=== PATIENT | female | born 1945 | race Caucasian/White ===

== ENCOUNTER 2017-03-19 11:56 | Emergency (ER) | payer OTHER ==
[2017-04-18] MEDS ORDERED: LISINOPRIL20 MG PO (09:32)
[2017-04-18] MEDS ORDERED: ZIAC 5-6.25 MG1 EACH PO (09:32)
[2017-04-18] MEDS ORDERED: TIROSINT100 MCG PO (09:33)
[2017-04-18] MEDS ORDERED: OLANZAPINE2.5 MG PO (09:33)
[2017-04-18] MEDS ORDERED: PANTOPRAZOLE SO40 MG PO (09:34)
[2017-04-18] MEDS ORDERED: WELLBUTRIN XL300 MG PO (09:34)
[2017-04-18] MEDS ORDERED: PERCOCET 7.5-31 EACH PO ×2 (09:35→13:29)
[2017-04-18] MEDS ORDERED: CLONAZEPAM0.5 MG PO (09:35)
== END 2017-03-19 15:20 | disposition home or self-care (01) ==
LOC: ER1 11:56
DX: S42.011A Anterior displaced fracture of sternal end of right clavicle, initial encounter for closed fracture (principal); I10 Essential (primary) hypertension; Z79.899 Other long term (current) drug therapy; W01.198A Fall on same level from slipping, tripping and stumbling with subsequent striking against other object, initial encounter
CPT/HCPCS: 73030; 73060; 99283

== ENCOUNTER → 2017-04-18 | Day surgery (SDC) | payer OTHER ==
[~2017-04-18] VITALS: Ht 162.6 cm; Wt 65.8 kg
[~2017-04-18] MED LIST: CLONAZEPAM0.5 MG PO; LISINOPRIL20 MG PO; OLANZAPINE2.5 MG PO; PANTOPRAZOLE SO40 MG PO; PERCOCET 7.5-31 EACH PO; TIROSINT100 MCG PO; WELLBUTRIN XL300 MG PO; ZIAC 5-6.25 MG1 EACH PO
[2017-04-18 09:07] LABS: HEMOGLOBIN 11.5 gm/dl (12.3-15.3); RED BLOOD COUNT 4.05 M/UL (4.00-5.10); WHITE BLOOD COUNT 4.9 K/UL (4.5-11.0)
[2017-04-18 09:20] LABS: BUN/CREATININE RATIO 23 (0-10)
== END | disposition home or self-care (01) ==
LOC: OR 08:33
PROVIDERS: Orthopaedic Surgery
PROC: 0PS904Z Reposition Right Clavicle with Internal Fixation Device, Open Approach (ICD-10-PCS; principal; 2017-04-18 11:30)
DX: S42.021A Displaced fracture of shaft of right clavicle, initial encounter for closed fracture (principal); S42.031A Displaced fracture of lateral end of right clavicle, initial encounter for closed fracture; I10 Essential (primary) hypertension; G89.29 Other chronic pain; M19.90 Unspecified osteoarthritis, unspecified site; M81.0 Age-related osteoporosis without current pathological fracture; Z83.3 Family history of diabetes mellitus; Z79.1 Long term (current) use of non-steroidal anti-inflammatories (NSAID); Z79.891 Long term (current) use of opiate analgesic; Z79.899 Other long term (current) drug therapy; X58.XXXA Exposure to other specified factors, initial encounter
CPT/HCPCS: 36415; 73000; 76000; 80048; 85025; C1713; J0690; J2250; J2795; J3010; J7120

== ENCOUNTER 2021-02-17 14:21 | Inpatient (IN) | payer OTHER ==
[~2021-02-17] VITALS: Ht 162.6 cm; Wt 53.5 kg
[~2021-02-17 14:21] MED LIST changes: -CLONAZEPAM0.5 MG PO
--- NOTE | 2021-02-17 17:05 | NUR ---
NOTIFIED DR GARCIA OF CONSULT FOR UNSTABLE L-2 FRACTURE
[2021-02-17 17:43] LABS: BUN/CREATININE RATIO 18 (0-10)
--- NOTE | 2021-02-17 18:10 | NUR ---
DR GARCIA HERE TO SEE PT, ORDERS REC'D
[2021-02-17 18:48] LABS: HEMOGLOBIN 12.9 gm/dl (12.3-15.3); RED BLOOD COUNT 4.54 M/UL (4.00-5.10); WHITE BLOOD COUNT 5.5 K/UL (4.5-11.0)
[2021-02-18 03:45] LABS: HEMOGLOBIN 11.7 gm/dl (12.3-15.3); RED BLOOD COUNT 4.15 M/UL (4.00-5.10); WHITE BLOOD COUNT 5.4 K/UL (4.5-11.0)
[2021-02-18 04:08] LABS: BUN/CREATININE RATIO 18 (0-10)
[2021-02-18] MEDS ORDERED: KLONOPIN0.5 MG PO (09:35)
[2021-02-18] MEDS ORDERED: TRAZODONE HCL100 MG PO (12:34)
[2021-02-18] MEDS ORDERED: DICLOFENAC SOD100 MG PO (12:36)
[2021-02-18] MEDS ORDERED: IBU800 MG PO (12:39)
[2021-02-18] MEDS ORDERED: VITAMIN D21250 MCG PO (12:40)
[2021-02-18] MEDS ORDERED: DONEPEZIL HCL10 MG PO (12:40)
[2021-02-18] MEDS ORDERED: MYRBETRIQ50 MG PO (12:40)
[2021-02-19 02:58] LABS: HEMOGLOBIN 12.5 gm/dl (12.3-15.3); RED BLOOD COUNT 4.44 M/UL (4.00-5.10); WHITE BLOOD COUNT 4.7 K/UL (4.5-11.0)
[2021-02-19 03:14] LABS: BUN/CREATININE RATIO 22 (0-10)
[2021-02-20 02:21] LABS: HEMOGLOBIN 13.2 gm/dl (12.3-15.3); RED BLOOD COUNT 4.57 M/UL (4.00-5.10)
[2021-02-20 02:30] LABS: WHITE BLOOD COUNT 12.1 K/UL (4.5-11.0)
[2021-02-20 03:06] LABS: BUN/CREATININE RATIO 16 (0-10)
--- NOTE | 2021-02-20 04:19 | NUR ---
2315 pt arrived to icu 2126, currently on . 2330 MD at bedside attempting to place [place], unsuccessful. 0000 MD placed R IJ triple lumen CVL, CXR ordered. 0030 and son at bedside. Family updated on poc and current vs and medications. Consult placed for Hospitalist. 0115 Orders received from [facility]: titrate fio2 down to 50%, rate 16 to maintain O2 sat > 92% and repeat blood gas in 2 hrs. DC levaquin and flagyl. Start Zosyn q6h and have pharmacy dose. 500ml NS bolus and continue NS @ 100ml/hr. Orders placed for labs and ekg. RT called and updated on changes, will repeat ABG at 3 am. 0215 FFP noted to be laying on back counter in pt room, this rn called blood bank to return dt unsure on time that FFP was obtained by surgery staff. . FFP unable to be returned dt expiring. Taken to blood bank for disposal. 0410 RT at bedside for ABG. 0413 Called and updated [facility] on critical lab results. Orders placed for daily asa, cardiology consult, and repeat cardiac enzymes in 3 hrs.
--- NOTE | 2021-02-20 07:18 | NUR ---
0605 ADVANCED OGT. ABD XRAY ORDERED TO CONFIRM. 0630 SEE PAPER CHART FOR Q15 MIN VS.
[2021-02-21 04:18] LABS: HEMOGLOBIN 11.1 gm/dl (12.3-15.3); RED BLOOD COUNT 3.82 M/UL (4.00-5.10); WHITE BLOOD COUNT 6.1 K/UL (4.5-11.0)
[2021-02-21 04:31] LABS: BUN/CREATININE RATIO 19 (0-10)
[2021-02-21 18:02] LABS: HEMOGLOBIN 11.1 gm/dl (12.3-15.3); RED BLOOD COUNT 3.76 M/UL (4.00-5.10); WHITE BLOOD COUNT 5.9 K/UL (4.5-11.0)
--- NOTE | 2021-02-22 01:15 | NUR ---
CALLED LAB BECAUSE PPT WAS DUE AT 0100 LAB STATES THEY WILL BE HERE SOON THEY CAN.
--- NOTE | 2021-02-22 01:39 | NUR ---
PT PULLED OUT NGT. NGT WAS PLACED AND ASCULTATION SUGGESTED CORRECT PLACEMENT BUT CXR SAYS TO ADVANCE 9CM. RADIOLOGY GROUP CALLED AND GAVE CRITICAL RESULT. NGT WAS ADVANCED PT TOELRATED WELL REPEAT CXR PENDING
[2021-02-22 02:05] LABS: HEMOGLOBIN 11.3 gm/dl (12.3-15.3); RED BLOOD COUNT 3.89 M/UL (4.00-5.10); WHITE BLOOD COUNT 6.1 K/UL (4.5-11.0)
[2021-02-22 02:23] LABS: BUN/CREATININE RATIO 21 (0-10)
--- NOTE | 2021-02-22 02:32 | NUR ---
LAB CONTACTED CONCERNING PTT THEY SAY THEY ARE GETTING IT
--- NOTE | 2021-02-22 02:34 | NUR ---
RADOILOGY RPT RECIEVED NGT IS IN GASTRIC BODY. NGT WAS HOOKED TO SUCTION BEFORE AT THIS TIME.
--- NOTE | 2021-02-22 02:46 | NUR ---
PER PROTOCOL HEPARIN ON HOLD DR EVANS NOTIFIED AND RECHECK ORDERED FOR 0440
[2021-02-23 02:33] LABS: WHITE BLOOD COUNT 5.1 K/UL (4.5-11.0)
[2021-02-23 02:46] LABS: RED BLOOD COUNT 3.4 M/UL (4.00-5.10)
[2021-02-23 02:52] LABS: BUN/CREATININE RATIO 16 (0-10)
[2021-02-23 18:46] LABS: BUN/CREATININE RATIO 23 (0-10)
[2021-02-24 04:44] LABS: HEMOGLOBIN 10.8 gm/dl (12.3-15.3); WHITE BLOOD COUNT 5.2 K/UL (4.5-11.0)
[2021-02-24 04:46] LABS: RED BLOOD COUNT 3.77 M/UL (4.00-5.10)
[2021-02-24 05:18] LABS: BUN/CREATININE RATIO 21 (0-10)
[2021-02-25 09:00] LABS: HEMOGLOBIN 11.8 gm/dl (12.3-15.3); RED BLOOD COUNT 4.04 M/UL (4.00-5.10); WHITE BLOOD COUNT 5.3 K/UL (4.5-11.0)
[2021-02-25 09:16] LABS: BUN/CREATININE RATIO 19 (0-10)
[2021-02-26 02:53] LABS: HEMOGLOBIN 8.8 gm/dl (12.3-15.3); RED BLOOD COUNT 3.01 M/UL (4.00-5.10)
[2021-02-26 03:13] LABS: BUN/CREATININE RATIO 19 (0-10)
[2021-02-27 03:12] LABS: HEMOGLOBIN 9.1 gm/dl (12.3-15.3); RED BLOOD COUNT 3.13 M/UL (4.00-5.10); WHITE BLOOD COUNT 5.9 K/UL (4.5-11.0)
[2021-02-27 03:30] LABS: BUN/CREATININE RATIO 17 (0-10)
--- NOTE | 2021-02-27 04:52 | NUR ---
PATIENT ACCIDENTALLY RIPPED OUT NG TUBE IN HER SLEEP. NOTIFIED DR EVANS AND ASKED HIM IF I SHOULD PLACE ANOTHER ONE OR LEAVE IT OUT AND STATED TO LEAVE THE NG TUBE OUT FOR NOW.
[2021-02-28 06:28] LABS: BUN/CREATININE RATIO 15 (0-10)
[2021-02-28 12:14] LABS: HEMOGLOBIN 9.4 gm/dl (12.3-15.3); RED BLOOD COUNT 3.28 M/UL (4.00-5.10); WHITE BLOOD COUNT 5.3 K/UL (4.5-11.0)
[2021-03-01 05:25] LABS: HEMOGLOBIN 9.6 gm/dl (12.3-15.3); RED BLOOD COUNT 3.38 M/UL (4.00-5.10); WHITE BLOOD COUNT 5.5 K/UL (4.5-11.0)
[2021-03-01 05:48] LABS: BUN/CREATININE RATIO 13 (0-10)
[2021-03-01 16:49] LABS: BUN/CREATININE RATIO 13 (0-10)
--- NOTE | 2021-03-01 21:57 | NUR ---
2119 NOTIFIED ME THAT HE NEEDED HELP WITH THE PATIENT. I ASKED HIM WHAT HE NEEDED HELP WITH AND HE SAID THAT HE NEEDED HELP GETTING HER BACK IN BED BECAUSE HE WAS TRYING TO GET HER UP BECAUSE HER BED WAS WET. STATED HE GOT THE PATIENT TO THE STOOL AND SHE FELL IN THE FLOOR. 2119 ASSESSED PATIENT, NO NEW INJURIES NOTED. PURA PIZARRO RN CHARGE NURSE PRESENT AND [facility]. PATIENT STATED "I SLID OFF THE CHAIR ONTO MY BUTT." WHEN ASKED IF SHE HURT ANYWHERE NEW, SHE STATED NO. PATIENT STATED SHE JUST HAD SOME MILD PAIN IN HER CHEST BUT IT HAD BEEN PRESENT BEFORE THE FALL. CHANGED THE PATIENT'S BEDSHEETS AND GOT HER CLEANED UP AND BACK INTO BED. VITAL SIGNS STABLE: BP 149/70, HR 87, 100% O2, and 98.6 TEMP. YELLOW GOWN ON, NON-SKID SOCKS PLACED ON PATIENT, FALL BAND, FALL LIGHT ON, BED ALARM TURNED ON, AND EDUCATED THE PATIENT AND FAMILY TO NOTIFY STAFF FOR ASSISTANCE. 2134 MASON HAWLEY RNPRINCIPAL PROGRAMMER NOTIFIED OF FALL. 2139 DR[address] FARRELL NOTIFIED OF FALL. NO NEW ORDERS. 2149 PHARMACY NOTIFIED OF FALL FOR MEDICATION REVIEW.
[2021-03-02] MEDS ORDERED: HYDROCODON-ACE1 EAC4 PO (10:34)
[2021-03-02] MEDS ORDERED: ELIQUIS 5 MG TAB5 MG PO (10:49)
== END 2021-03-02 14:29 | DRG 515 ==
LOC: M/S 15:45 → PROG CARE 15:45 → CCU 15:45 → PROG CARE 02-23 22:51 → M/S 02-25 16:57
PROVIDERS: Internal Medicine; Orthopaedic Surgery; Physician Assistant Medical; Surgery; ADMIT Internal Medicine
PROC: 5A1945Z Respiratory Ventilation, 24-96 Consecutive Hours (ICD-10-PCS; 2021-02-17)
PROC: 0BH17EZ Insertion of Endotracheal Airway into Trachea, Via Natural or Artificial Opening (ICD-10-PCS; 2021-02-17)
PROC: 0RH604Z Insertion of Internal Fixation Device into Thoracic Vertebral Joint, Open Approach (ICD-10-PCS; 2021-02-17)
PROC: 0SH004Z Insertion of Internal Fixation Device into Lumbar Vertebral Joint, Open Approach (ICD-10-PCS; 2021-02-17)
PROC: 30233N1 Transfusion of Nonautologous Red Blood Cells into Peripheral Vein, Percutaneous Approach (ICD-10-PCS; principal; 2021-02-19 15:30)
PROC: 30233N1 Transfusion of Nonautologous Red Blood Cells into Peripheral Vein, Percutaneous Approach (ICD-10-PCS; 2021-02-19 15:30)
DX: S32.029A Unspecified fracture of second lumbar vertebra, initial encounter for closed fracture (principal); I21.A1 Myocardial infarction type 2; J96.20 Acute and chronic respiratory failure, unspecified whether with hypoxia or hypercapnia; I82.C11 Acute embolism and thrombosis of right internal jugular vein; K56.7 Ileus, unspecified; Q79.60 Ehlers-Danlos syndrome, unspecified; K56.609 Unspecified intestinal obstruction, unspecified as to partial versus complete obstruction; K92.2 Gastrointestinal hemorrhage, unspecified; W18.30XA Fall on same level, unspecified, initial encounter; K52.9 Noninfective gastroenteritis and colitis, unspecified; E03.9 Hypothyroidism, unspecified; I95.9 Hypotension, unspecified; I10 Essential (primary) hypertension; M81.0 Age-related osteoporosis without current pathological fracture; Z20.822 Contact with and (suspected) exposure to COVID-19; D64.9 Anemia, unspecified; E11.9 Type 2 diabetes mellitus without complications; Y93.9 Activity, unspecified; Y92.9 Unspecified place or not applicable; Z82.49 Family history of ischemic heart disease and other diseases of the circulatory system; Z83.3 Family history of diabetes mellitus
CPT/HCPCS: ECHO; 36415; 36600; 70450; 71045; 72020; 72040; 72070; 72100; 72131; 72148; 74018; 74150; 76000; 80048; 80053; 81001; 82550; 82553; 82803; 82962; 83605; 83735; 84100; 84132; 84466; 84478; 84484; 85014; 85018; 85025; 85027; 85610; 85730; 86850; 86900; 86901; 86920; 86927; 87040; 87086; 93005; 93306; 93308; 93880; 94002; 94003; 94760; C1713; C1751; C1762; C1781; C9113; J0171; J0690; J1100; J1644; J1956; J2001; J2270; J2370; J2405; J2543; J2550; J2704; J3010; J3370; J3475; J3480; J7030; J7040; J7050; J7120; P9016; P9017

== ENCOUNTER 2021-05-30 19:44 | Inpatient (IN) | payer OTHER, MEDICARE ==
[~2021-05-30] VITALS: Ht 165.1 cm; Wt 39.5 kg
[~2021-05-30 19:44] MED LIST changes: +DONEPEZIL HCL10 MG PO; +ELIQUIS 5 MG TAB5 MG PO; +HYDROCODON-ACE1 EAC4 PO; +IBU800 MG PO; +MYRBETRIQ50 MG PO; -TIROSINT100 MCG PO; +VITAMIN D21250 MCG PO
[2021-05-30 20:28] LABS: HEMOGLOBIN 13.9 gm/dl (12.3-15.3); RED BLOOD COUNT 4.82 M/UL (4.00-5.10); WHITE BLOOD COUNT 16.7 K/UL (4.5-11.0)
[2021-05-31 07:19] LABS: HEMOGLOBIN 12.2 gm/dl (12.3-15.3); RED BLOOD COUNT 4.41 M/UL (4.00-5.10); WHITE BLOOD COUNT 17.8 K/UL (4.5-11.0)
[2021-05-31 07:33] LABS: BUN/CREATININE RATIO 54 (0-10)
[2021-05-31] MEDS ORDERED: FENTANYL1 EAC4 EXT (09:26)
[2021-05-31] MEDS ORDERED: IBU800 MG PO (09:29)
[2021-05-31] MEDS ORDERED: PROMETHAZINE12.5 MG PR (09:31)
[2021-05-31] MEDS ORDERED: LEVOTHYROXINE100 MCG PO (09:33)
[2021-05-31] MEDS ORDERED: KLONOPIN0.5 MG PO (09:35)
[2021-05-31] MEDS ORDERED: TRAZODONE HCL100 MG PO (12:34)
[2021-05-31] MEDS ORDERED: DICLOFENAC SOD100 MG PO (12:36)
[2021-06-01 04:51] LABS: HEMOGLOBIN 11.4 gm/dl (12.3-15.3)
[2021-06-01 04:54] LABS: RED BLOOD COUNT 3.93 M/UL (4.00-5.10); WHITE BLOOD COUNT 9.5 K/UL (4.5-11.0)
[2021-06-01 05:14] LABS: BUN/CREATININE RATIO 50 (0-10)
--- NOTE | 2021-06-01 16:48 | NUR ---
NOTIFIED DR CARTAGENA OF PATIENT PULLING OUT NG TUBE. OKAY TO LEAVE NG OUT IF NO COMPLAINTS PER MD.
[2021-06-02 03:09] LABS: HEMOGLOBIN 10.3 gm/dl (12.3-15.3); RED BLOOD COUNT 3.63 M/UL (4.00-5.10); WHITE BLOOD COUNT 6.1 K/UL (4.5-11.0)
[2021-06-02 03:56] LABS: BUN/CREATININE RATIO 42 (0-10)
[2021-06-03 06:26] LABS: HEMOGLOBIN 10.4 gm/dl (12.3-15.3); RED BLOOD COUNT 3.71 M/UL (4.00-5.10); WHITE BLOOD COUNT 6.2 K/UL (4.5-11.0)
[2021-06-03 07:31] LABS: BUN/CREATININE RATIO 21 (0-10)
--- NOTE | 2021-06-03 10:25 | NUR ---
0805- NOTIFIED DR LONDONO OF CRITICAL POTASSIUM. NEW ORDER NOTED.
[2021-06-03 14:47] LABS: BUN/CREATININE RATIO 16 (0-10)
[2021-06-04 05:45] LABS: HEMOGLOBIN 11.6 gm/dl (12.3-15.3); WHITE BLOOD COUNT 7.7 K/UL (4.5-11.0)
[2021-06-04 05:46] LABS: RED BLOOD COUNT 4.1 M/UL (4.00-5.10)
[2021-06-04 06:07] LABS: BUN/CREATININE RATIO 10 (0-10)
[2021-06-05 06:41] LABS: HEMOGLOBIN 10.8 gm/dl (12.3-15.3); RED BLOOD COUNT 3.76 M/UL (4.00-5.10); WHITE BLOOD COUNT 8.1 K/UL (4.5-11.0)
[2021-06-05 07:11] LABS: BUN/CREATININE RATIO 11 (0-10)
== END 2021-06-06 18:17 | disposition home health service (06) | DRG 388 ==
LOC: ER1 19:44 → CDU 05-31 00:36 → MED SURG 4 05-31 00:36
PROVIDERS: Internal Medicine; Student in an Organized Health Care Education/Training Program; ADMIT Internal Medicine
DX: K56.50 Intestinal adhesions [bands], unspecified as to partial versus complete obstruction (principal); E43 Unspecified severe protein-calorie malnutrition; Z20.822 Contact with and (suspected) exposure to COVID-19; R65.10 Systemic inflammatory response syndrome (SIRS) of non-infectious origin without acute organ dysfunction; E87.1 Hypo-osmolality and hyponatremia; N39.0 Urinary tract infection, site not specified; Z68.1 Body mass index [BMI] 19.9 or less, adult; E87.6 Hypokalemia; E83.42 Hypomagnesemia; I10 Essential (primary) hypertension; F41.9 Anxiety disorder, unspecified; F03.90 Unspecified dementia, unspecified severity, without behavioral disturbance, psychotic disturbance, mood disturbance, and anxiety; E86.0 Dehydration; E83.39 Other disorders of phosphorus metabolism; I48.91 Unspecified atrial fibrillation; E03.9 Hypothyroidism, unspecified; I25.2 Old myocardial infarction; Z87.81 Personal history of (healed) traumatic fracture; Z90.49 Acquired absence of other specified parts of digestive tract; Z82.49 Family history of ischemic heart disease and other diseases of the circulatory system; Z79.01 Long term (current) use of anticoagulants
CPT/HCPCS: 36415; 71045; 74018; 80048; 80053; 81001; 82550; 82553; 83605; 83690; 83735; 83874; 84100; 84132; 84484; 85025; 85027; 87086; 93005; 96374; 96375; 99285; C9113; J0696; J1650; J2270; J2405; J3475; J3480; J7070; Q9967; U0002

== ENCOUNTER 2021-09-15 20:13 | Inpatient (IN) | payer OTHER ==
[~2021-09-15] VITALS: Ht 160 cm; Wt 49.4 kg
[~2021-09-15 20:13] MED LIST changes: +DICLOFENAC SOD100 MG PO; +FENTANYL1 EAC4 EXT; +KLONOPIN0.5 MG PO; +LEVOTHYROXINE100 MCG PO; +PROMETHAZINE12.5 MG PR; +TRAZODONE HCL100 MG PO
[2021-09-15 20:44] LABS: HEMOGLOBIN 11.5 gm/dl (12.3-15.3); RED BLOOD COUNT 3.86 M/UL (4.00-5.10); WHITE BLOOD COUNT 7.6 K/UL (4.5-11.0)
[2021-09-15] MEDS ORDERED: HYDROCODON-ACE1 EAC4 PO (23:02)
[2021-09-16 01:24] LABS: RED BLOOD COUNT 3.38 M/UL (4.00-5.10); WHITE BLOOD COUNT 12.8 K/UL (4.5-11.0)
[2021-09-16 20:49] LABS: ACINETOBACTER BAUMANNII Not Detected (Negative); CANDIDA ALBICANS Not Detected (Negative); CANDIDA KRUSEI Not Detected (Negative); CANDIDA TROPICALIS Not Detected (Negative); ENTEROCOCCUS Not Detected (Negative); ESCHERICHIA COLI Not Detected (Negative); HAEMOPHILUS INFLUENZAE Not Detected (Negative); KLEBSIELLA OXYTOCA Not Detected (Negative); KLEBSIELLA PNEUMONIAE Not Detected (Negative); KPC-CARBAPENEM-RESISTANCE GENE Not Detected (Negative); PROTEUS Not Detected (Negative); PSEUDOMONAS AERUGINOSA Not Detected (Negative); SERRATIA MARCESANS Not Detected (Negative); STAPHYLOCOCCUS AUREUS Not Detected (Negative); STREP AGALACTIAE (GROUP B) Not Detected (Negative); STREP PYOGENES (GROUP A) Not Detected (Negative); STREPTOCOCCUS Not Detected (Negative); vanA/B (VANCOMYCIN RESIST GENE Not Detected (Negative)
[2021-09-16 22:12] LABS: STAPHYLOCOCCUS DETECTED (Negative); mecA (METHICILLIN RESIST GENE DETECTED (Negative)
[2021-09-17 03:54] LABS: BUN/CREATININE RATIO 42 (0-10)
[2021-09-17 04:42] LABS: WHITE BLOOD COUNT 5.6 K/UL (4.5-11.0)
[2021-09-17 04:43] LABS: HEMOGLOBIN 8.9 gm/dl (12.3-15.3); RED BLOOD COUNT 3.07 M/UL (4.00-5.10)
[2021-09-17 15:01] LABS: BUN/CREATININE RATIO 35 (0-10)
[2021-09-17 18:49] LABS: BUN/CREATININE RATIO 29 (0-10)
[2021-09-18 09:09] LABS: HEMOGLOBIN 9.1 gm/dl (12.3-15.3); RED BLOOD COUNT 3.15 M/UL (4.00-5.10); WHITE BLOOD COUNT 5.1 K/UL (4.5-11.0)
[2021-09-18 09:32] LABS: BUN/CREATININE RATIO 30 (0-10)
--- NOTE | 2021-09-18 21:39 | NUR ---
NOTICED A RED TENDER AREA TO THE LEFT INNER FOREARM WHERE PREVIOUS IV HAD BEEN. PT HAD LEVOPHED RUNNING THROUGH THE IV SITE IN THAT ARM EARLIER TODAY AND IT WAS REMOVED AND STARTED ON OTHER ARM. NOTIFIED DR. EVANS OF PTS FINDINGS AND TENDERNESS.
--- NOTE | 2021-09-18 22:07 | NUR ---
LEVOPHED ANTIDOTE GIVEN TO LEFT FOREARM PER JUNE ERICKSON. PT TOLERATED WELL. SHE IS COMPLAINING OF RIGHT THUMB HURTING WELL, THIS SITE IS THE ONE THAT THE LEVOPHED WAS RUNNING THROUGH. STOPPED LEVOPHED IMMEDIATLEY AND WILL MONITOR SITE. IV REMOVED. NO REDNESS NOTED. MASON NARVAEZ RN ATTEMPTING TO PLACE AN ULTRASOUND IV NOW.
--- NOTE | 2021-09-18 23:41 | NUR ---
UPON DOING OUR HOURLY ROUNDING PTS CAREGIVER STATES, " SHE IS COMPLAIING OF A VERY BAD HEADACHE IS THAT A SIDE EFFECT FROM THE MEDICATION BEING INFILTRATED??". NOTIFIED DR. EVANS OF PTS PAIN AND CAREGIVERS CONCERNS.
--- NOTE | 2021-09-18 23:52 | NUR ---
WENT IN TO OFFER PT TYLENOL PER MD ORDER. SHE IS ASLEEP. CAREGIVER STATES TO NOT WAKE HER UP. INSTRUCTED THAT IF SHE WAKES UP AND NEEDS SOMETHING FOR PAIN TO LET ME KNOW AND ILL BE HAPPY TO GIVE HER SOMETHING.
[2021-09-19 03:18] LABS: HEMOGLOBIN 8.5 gm/dl (12.3-15.3); RED BLOOD COUNT 2.91 M/UL (4.00-5.10)
[2021-09-19 03:29] LABS: WHITE BLOOD COUNT 6.4 K/UL (4.5-11.0)
[2021-09-19 05:45] LABS: BUN/CREATININE RATIO 21 (0-10)
--- NOTE | 2021-09-19 05:54 | NUR ---
MORNING ASSESSMENT OF HER ARM, IT LOOKS ALOT BETTER. REDNESS IS NEARLY GONE AND PT STATES ITS NOT TENDER. SHE DENIES HAVING ANY HEADACHE AT THIS TIME.
[2021-09-19 15:22] LABS: BUN/CREATININE RATIO 24 (0-10)
[2021-09-20 03:59] LABS: HEMOGLOBIN 8.2 gm/dl (12.3-15.3); RED BLOOD COUNT 2.73 M/UL (4.00-5.10); WHITE BLOOD COUNT 5.2 K/UL (4.5-11.0)
[2021-09-20 04:24] LABS: BUN/CREATININE RATIO 21 (0-10)
[2021-09-20] MEDS ORDERED: ZEBETA 5 MG TAB5 MG PO (10:00)
[2021-09-20] MEDS ORDERED: MACROBID 100 M100 MG PO (12:05)
== END 2021-09-20 14:00 | disposition home health service (06) | DRG 871 ==
LOC: ER1 20:13 → CDU 21:20 → PROG CARE 21:20
PROVIDERS: Emergency Medicine; Internal Medicine; ADMIT Internal Medicine
PROC: B24BZZ4 Ultrasonography of Heart with Aorta, Transesophageal (ICD-10-PCS; principal; 2021-09-18)
DX: A41.51 Sepsis due to Escherichia coli [E. coli] (principal); G93.41 Metabolic encephalopathy; R65.21 Severe sepsis with septic shock; N17.9 Acute kidney failure, unspecified; E87.2 Acidosis; E87.1 Hypo-osmolality and hyponatremia; N39.0 Urinary tract infection, site not specified; Z20.822 Contact with and (suspected) exposure to COVID-19; R53.81 Other malaise; E03.9 Hypothyroidism, unspecified; I10 Essential (primary) hypertension; E55.9 Vitamin D deficiency, unspecified; F32.A Depression, unspecified; F41.9 Anxiety disorder, unspecified; F03.90 Unspecified dementia, unspecified severity, without behavioral disturbance, psychotic disturbance, mood disturbance, and anxiety; I25.2 Old myocardial infarction; Z90.49 Acquired absence of other specified parts of digestive tract; Z98.890 Other specified postprocedural states; Z82.49 Family history of ischemic heart disease and other diseases of the circulatory system; Z80.0 Family history of malignant neoplasm of digestive organs; Z79.899 Other long term (current) drug therapy
CPT/HCPCS: 36415; 70450; 71045; 80048; 80053; 80202; 81001; 82436; 82533; 82550; 82553; 82570; 82962; 83605; 83735; 84100; 84133; 84300; 84439; 84443; 84484; 85025; 86140; 87040; 87077; 87086; 87150; 87186; 93005; 93308; 97110; 97161; 97530; 99285; G0378; J0696; J1650; J2597; J2760; J3370; J3475; J7030; J7050; J7060; J7070; U0002